=== PATIENT | male | born 1980 | race Caucasian/White ===

== ENCOUNTER 2017-07-09 20:00 | Emergency (ER) | payer SELFPAY ==
[~2017-07-09] VITALS: Ht 175.3 cm; Wt 76.7 kg
[2017-07-09 20:59] LABS: HEMATOCRIT 42.6 % (42.0-52.0); MEAN CELL VOLUME 83 fl (78-100); MEAN CORPUSCULAR HEMOGLOBIN 27 pg (27-31); MEAN CORPUSCULAR HGB CONC 33 g/dL (33-37); MEAN PLATELET VOLUME 9.6 fl (7.4-10.4); PLATELET COUNT 219 K/mm3 (130-400); RED BLOOD COUNT 5.15 M/mm3 (4.20-5.60); RED CELL DISTRIBUTION WIDTH 12.8 % (11.5-14.5); WHITE BLOOD COUNT 16.3 K/mm3 (4.8-10.8)
[2017-07-09 21:06] LABS: BUN/CREATININE RATIO 18.1 (6.0-26.0); CALCIUM 8.7 mg/dL (8.4-10.2); POTASSIUM 4.1 mmol/L (3.6-5.0)
[2017-07-09 21:13] LABS: BAND 3 % (0-10); LYMPHOCYTE 8 % (20-51); MONOCYTE 6 % (3-10); NEUTROPHILS 83 % (42-75)
[2017-07-09] MEDS ORDERED: DOXYCYCLINE HY100 M5 PO (22:44)
[2017-07-09] MEDS ORDERED: PROAIR HFA0.09 MG/AC IH (22:44)
[2017-07-09] MEDS ORDERED: NORCO 325 MG-51 TA1 PO (22:44)
[2017-07-09 23:23] VITALS: BP 96/63
== END 2017-07-09 23:23 | disposition home or self-care (01) ==
LOC: ED 20:00
PROVIDERS: Family Medicine
DX: J18.9 Pneumonia, unspecified organism (principal); F17.200 Nicotine dependence, unspecified, uncomplicated
CPT/HCPCS: J0696; J1885